=== PATIENT | female | born 1995 | race Caucasian/White ===

== ENCOUNTER 2022-07-20 15:14 | Emergency (ER) | payer BC ==
[~2022-07-20] VITALS: Ht 152.4 cm; Wt 45.4 kg
[2022-07-20 15:18] VITALS: BP 109/86
[2022-07-20] MEDS ORDERED: NACL 0.9% 1,000 ML IV ONE (15:35)
[2022-07-20] MEDS ORDERED: MECLIZINE 25 MG TAB PO ONE (15:35)
[2022-07-20 15:57] LABS: BASOPHILS % (AUTO) 0.3 % (0.0-2.0); EOSINOPHILS % (AUTO) 0.2 % (0.0-4.0); HEMATOCRIT 34.9 % (36-48); HEMOGLOBIN 11.7 g/dL (12.0-16.0); LYMPHOCYTES # (AUTO) 0.7 K/uL (2.5-16.5); LYMPHOCYTES % (AUTO) 8.1 % (20.5-51.1); MEAN CORPUSCULAR HEMOGLOBIN 28 pg (27-31); MEAN CORPUSCULAR HGB CONC 34 g/dL (33-37); MEAN CORPUSCULAR VOLUME 82.5 fL (80-94); MONOCYTES # (AUTO) 0.6 K/uL (0.8-1.0); MONOCYTES % (AUTO) 6.9 % (1.7-9.3); NEUTROPHILS # (AUTO) 7.3 K/uL (1.8-7.7); NEUTROPHILS % (AUTO) 84.5 % (42.2-75.2); PLATELET COUNT (AUTO) 253 K/uL (140-450); RED BLOOD CELL COUNT(AUTO) 4.23 MIL/uL (4.20-5.40); RED CELL DISTRIBUTION WIDTH 15.9 % (11.6-13.7); WHITE BLOOD COUNT (AUTO) 8.6 K/uL (4.8-10.8)
[2022-07-20 16:17] LABS: ALBUMIN 3.4 g/dL (3.4-5.0); ANION GAP 10.5 (8-16); CARBON DIOXIDE 26.8 mmol/L (21-32); CREATININE 0.8 mg/dL (0.6-1.3); MAGNESIUM 1.5 mg/dL (1.8-2.4); PHOSPHORUS 3.2 mg/dL (2.5-4.9); POTASSIUM 3.3 mmol/L (3.5-5.1); TOTAL BILIRUBIN 0.2 mg/dL (0.0-1.0)
[2022-07-20 16:21] LABS: APPEARANCE,URINE CLEAR (CLEAR); BILIRUBIN,URINE NEGATIVE (NEGATIVE); BLOOD, URINE 3+ (NEGATIVE); COLOR,URINE YELLOW (YELLOW); LEUKOCYTE ESTERASE ,URINE NEGATIVE (NEGATIVE); NITRITE, URINE NEGATIVE (NEGATIVE); UGLUCOSE NEGATIVE (NEGATIVE)
--- NOTE | 2022-07-20 16:26 | NUR ---
PT C/O DIZZINESS X 4 DAYS WORSENING TODAY, FEELS LIKE ROOM IS SPINNING. EKG DONE, US PREG NEG, UA WALKED TO LAB. NAD.
[2022-07-20] MEDS ORDERED: POTASSIUM CHLORIDE 10 MEQ TABER PO ONE (16:45)
[2022-07-20] MEDS ORDERED: MAG SULF 2000 MG/WATER PREMIX 50 ML IV ONE (16:45)
[2022-07-20 18:31] VITALS: BP 110/68
--- NOTE | 2022-07-20 18:33 | NUR ---
Patient discharged with v/s stable. Written and verbal after care instructions given and explained. Patient verbalized understanding. Ambulatory with steady gait. All questions addressed prior to discharge. Advised to follow up with PMD.
== END 2022-07-20 18:31 | disposition home or self-care (01) ==
LOC: MED 15:14
DX: R42 Dizziness and giddiness (principal); E87.6 Hypokalemia; E83.42 Hypomagnesemia; Z79.899 Other long term (current) drug therapy
CPT/HCPCS: 36415; 80053; 81001; 81025; 83735; 84100; 85025; 87086; 93005; 96361; 96365; 99284; J3475; J7030; J8597